=== PATIENT | female | born 1965 | race Caucasian/White ===

== ENCOUNTER 2020-09-16 13:35 | Emergency (ER) | payer OTHER ==
[~2020-09-16] VITALS: Ht 170.2 cm; Wt 81.8 kg
[2020-09-16 13:48] VITALS: BP 168/86
--- NOTE | 2020-09-16 14:21 | REP ---
INDICATION: injury COMPARISON: None. TECHNIQUE: Four views right foot. FINDINGS: There is no evidence of acute fracture, dislocation, or intrinsic bone disease.Moderate inferior calcaneal spurring is noted. The joint spaces are unremarkable. IMPRESSION: No fracture or dislocation. Inferior calcaneal spurring. <Electronically signed by Misael Aranda > 09/16/20 [id number]
== END 2020-09-16 16:57 | disposition home or self-care (01) ==
LOC: M ED 13:35
DX: S90.31XA Contusion of right foot, initial encounter (principal); W54.1XXA Struck by dog, initial encounter; Y92.018 Other place in single-family (private) house as the place of occurrence of the external cause